=== PATIENT | male | born 1930 | race Caucasian/White ===

== ENCOUNTER 2016-08-08 07:37 | Emergency (ER) | payer MEDICARE ==
[~2016-08-08] VITALS: Ht 182.9 cm; Wt 81.8 kg
[~2016-08-08 07:37] MED LIST: ASP81TEC PO; ATENOLOL (*) 2525 MG PO; OMEP20TA86 PO
--- NOTE | 2016-08-08 07:42 | ED.REPORT ---
HPI-General Illness Date of Service Aug 08, 2016 ED Provider: Enoch Jackson MD 85-year-old male presents today with altered level of consciousness. states that he was found unconscious this morning and EMS was called at that time. Upon arrival of the EMS he was awake but remained somewhat confused and was taken to the hospital that time. Today in the hospital he is alert and oriented 3 and is not showing any signs of altered mental status at this time. However he complains of increased weakness and nausea. The family states that he has been progressively weaker over the last 1-2 months and his mental status is been varied over that time. Family states that he had a fall earlier today, and since that time the patient has been complaining of increased neck pain. He has a primary care provider and the family has been trying to get him into see a neurologist for plantar fasciitis as well as the neurologic changes noted over the last few months. Nursing Notes Stated Complaint: ALTERED LOC Allergies: Coded Allergies: No Known Allergies (Verified , 11/08/07) Scheduled Aspirin (Aspirin) 325 Mg Tablet 325 MG PO DAILY Atenolol (Atenolol) 25 Mg Tablet 25 MG PO DAILY Atenolol-Expunged Drug, Do Not Renew! (Atenolol-Expunged Drug, Do Not Renew!) 25 Mg Tab 25 MG PO DAILY Omeprazole-Expunged Drug, Do Not Renew! (Omeprazole-Expunged Drug, Do Not Renew! ) 20 Mg Tablet.dr 20 MG PO ac prn Miscellaneous Medications Aspirin-Expunged Drug, Do Not Renew! (Aspirin EC-Expunged Drug, Do Not Renew!) 81 Mg Tablet 81 MG PO General Time Seen by MD: 07:41 Chief Complaint Weakness Hx Obtained From: Patient Arrived By: Ambulance Sudden in Onset?: Yes Onset Occurred: Just prior to arrival Symptom Duration: Intermittent Location: : Neck Quality: Aching Radiation: : Does not radiate Past Medical History Past Medical History Notes: Arthritis - Hip Past Medical History Reports: Hypertension Smoking History Never Smoker Social History Alcohol Use: Denies alcohol use Drug Use: Denies drug use Review of Systems Complete sys rev & neg: except as marked. Physical Exam Vital Signs Vital Signs Date Time Temp Pulse Resp B/P Pulse Ox O2 Delivery O2 Flow Rate FiO2 08/08/16 11:56 36.7 95 21 113/61 94 Room Air 08/08/16 09:18 104 18 125/72 98 Room Air 08/08/16 07:58 36.7 95 25 129/79 99 Room Air General/Constitutional: Well-developed, Well-nourished Head / Eyes: Atraumatic, Normocephalic, PERRL ENT: Mucous membranes moist, Conjunctiva normal, No scleral icterus Neck: Supple, Non-tender, Full range of motion Respiratory: Breath sounds normal, Clear to auscultation, No respiratory distress Abdomen / GI: Soft, Non-tender, No guarding, No rebound, No distention Extremities: Vascular intact, Neuro intact, No swelling, No tenderness Skin: Warm, Dry, No cyanosis Neurologic: Alert, Oriented, Nonfocal Psychiatric: Mood/affect normal, Behavior normal, Normal thought content Heart Rate / Rhythm: Positive: Irreg irregular rhythm, Tachycardia Interpretation & Diagnostics Lab Results Interpretation Result Diagram: 08/08/16 0830 08/08/16 0830 Test 08/08/16 08:13 08/08/16 08:30 Urine Color Straw (YELLOW) Urine Appearance Clear (CLEAR,HAZY) Urine pH 5.0 (5.0-8.0) Urine Specific Bradford 1.025 (1.003-1.035) Urine Protein 30mg/dL (NEG,TRACE) Urine Glucose (UA) Negativemg/dL (NEGATIVE) Urine Ketones Negativemg/dL (NEGATIVE) Urine Occult Blood Small (NEGATIVE) Urine Nitrite Negative (NEGATIVE) Urine Bilirubin Negative (NEGATIVE) Urine Urobilinogen Normalmg/dL (NORMAL) Urine Leukocyte Esterase Negative (NEGATIVE) Urine RBC 3-10/hpf (0-2) Urine WBC 0-5/hpf (0-5) Urine Epithelial Cells Few/hpf (NONE-MOD) Urine Crystals None seen (NONE SEEN) Urine Bacteria Few/hpf (NONE-FEW) Urine Hyaline Casts None/lpf (NONE) Urine Granular Casts None seen (NONE SEEN) Urine Waxy Casts None seen (NONE SEEN) Urine Red Blood Cell Casts None seen (NONE SEEN) Urine White Blood Cell Casts None seen (NONE SEEN) Urine Mucus Present (None Seen) Urine Trichomonas None seen (NONE SEEN) Urine Yeast None (NONE SEEN) Urinalysis Comment None Urine Culture Reflexed Not indicated White Blood Count 9.2th/mm3 (3.8-10.1) Red Blood Count 4.30mil/mm3 (4.40-5.80) Hemoglobin 14.2g/dL (13.8-17.2) Hematocrit 42.1% (41.0-50.0) Mean Corpuscular Volume 97.9fL (81-100) Mean Corpuscular Hemoglobin 33.0pg (27.0-35.0) Mean Corpuscular Hemoglobin Concent 33.7% (32.0-37.0) Red Cell Distribution Width 13.7% (12.3-15.4) Platelet Count 147bil/L (150-400) Neutrophils (%) (Auto) 87.3% (40-74) Lymphocytes (%) (Auto) 5.1% (14-46) Monocytes (%) (Auto) 5.4% (4-12) Eosinophils (%) (Auto) 1.5% (0-5) Basophils (%) (Auto) 0.3% (0-3) Hold Urine Received (Received) Sodium Level 139mEq/L (134-144) Potassium Level 4.0mEq/L (3.5-5.2) Chloride Level 105mEq/L (97-108) Carbon Dioxide Level 19mmol/L (18-29) Blood Urea Nitrogen 23mg/dL (8-27) Creatinine 0.91mg/dL (0.76-1.27) Estimat Glomerular Filtration Rate 84mL/min (>59) Glucose Level 130mg/dL (60-99) Calcium Level 10.1mg/dL (8.5-10.1) Magnesium Level 1.9mg/dL (1.6-2.6) Total Bilirubin 0.4mg/dL (0.0-1.2) Aspartate Amino Transf (AST/SGOT) 20U/L (0-50) Alanine Aminotransferase (ALT/SGPT) 13U/L (0-44) Alkaline Phosphatase 74U/L (25-160) Troponin T 0.010ug/L (0.0-0.011) Total Protein 6.4g/dL (6.4-8.4) Albumin 3.9g/dL (3.4-5.0) Hold Murphy Top Tube Received (Received) ECG Interpretation Time: 09:00 Interpreted by: ED physician Normal ECG Interpretation: Normal rate Abnormal Rate: 100 Rhythm / Conduction: Atrial fibrillation Re-Eval/Medical Decision Med Decision/Clinical Course EKG shows atrial fibrillation. This is most likely new onset. The patient is not had an EKG in the last year, and family states that he has not been diagnosed with this condition previously. CT brain showed "Mild periventricular and deep white matter chronic small vessel ischemic change. 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 fib at this time. The patient states it is currently taking 650 mg of tylenol nightly for arthritis and hip pain. Warfarin is considering this patient because he has new onset A. fib, however due to his history of recent falls along with the fact that he is currently taking a dose of aspirin there is some question as to whether or not this should be initiated this time. Counseled Regarding: Diagnosis, Lab results, Need for follow-up, When/why to return to ED Discharge & Departure Primary Impression: A-fib Atrial fibrillation type: unspecified Qualified Code: I48.91 - Unspecified atrial fibrillation Additional Impressions: Fall from ground level Altered mental status Altered mental status type: unspecified Qualified Code: R41.82 - Altered mental status, unspecified Disposition: Home Discharge Condition All VS Reviewed: Yes Condition: Stable Additional Instructions: You presented to the hospital today for weakness and dizziness that has been constant over the last 1-2 months. Her EKG today showed atrial fibrillation. This may be new onset or may have existed for the last few months. This is likely the cause of your symptoms. We discussed with you extensively the pros and cons of taking a blood thinner for this condition. After initiation of blood thinning therapy there is concern for falls as this may cause bleeding either externally or internally. However, if we do not place you on blood thinner there is a possibility of stroke sometime in the future. After discussing this with family reconsidered warfarin therapy however, the patient's family attempted to start his therapy based on many side effects they have heard of from this medication. We discussed the possibility of other blood thinning medications as an alternative , however at this time the patient does not have an insurance plan that would cover outpatient medications and the alternatives to warfarin can be expensive to pay for as an outpatient. For these reasons, combined with the fact that the patient's risk for stroke within the next year is relatively low it was decided that blood thinning medication not be initiated at this time. Instead, the patient had been taking a baby aspirin (81 mg), at this time we will increase the dose to 325 mg daily cover for possibility of stroke Additionally, a common problem to occur in atrial fibrillation is a rapid heart rate. For this reason, we suggest you begin taking atenolol 25 mg daily as previously prescribed. We were unable to determine if you are currently taking triamterene-HCTZ, however if you are taking this medication continue as previously prescribed for fluid retention. We attempted to contact her primary care provider however our efforts were unsuccessful and we were unable to communicate. Please follow-up with your primary care provider as soon as possible. The primary care provider should be able to manage this condition on an outpatient basis, however, if he is concerned about the management he may refer you to cardiology at that time. If you develop shortness of breath, chest pain, facial droop, altered state of consciousness, weakness in arms or legs, visual changes, auditory changes, or an inability to speak please return to the emergency department as soon as possible. Referrals: Anirudh Maier MD (PCP) EDSupervising Provider for APC: Enoch Jackson MD Attending Statement Attending attestation: I saw this patient in conjunction with the above named resident. I was present for all estes portions of the history taking and physical examination. I agree with the workup, evaluation, treatment and disposition. Pt presents after an episode of altered mental status following a ground-level fall. Imaging of the head and cervical spine is reassuring. Patient's cervical spine was clinically cleared and collar was removed. No evidence of acute infectious process. No lateralizing neurologic findings. Here in the emergency department patient is alert/awake and answering questions appropriately. He does not desire admission to the hospital. He is found to be in atrial fibrillation which is apparently new. We had a long conversation with the patient as well as his family regarding anticoagulation. Given that he has had ground-level falls the decision was then made not to initiate Coumadin. He will start daily adult aspirin. He has been on atenolol in the past though has not been taking it recently. We have restarted atenolol for rate control. We attempted to contact the patient's primary care physician however we were not successful. The event advised to follow-up in the next 1-2 days with his primary care doctor for further discussions about risks and benefits of anticoagulation. Per family the patient is felt to be safe at home and they will assist in ambulation and make sure that he does not fall again. Prior to discharge follow- up and return precautions were reviewed in detail with the patient who verbalized understanding and agreement with the plan. The patient was discharged in stable condition. Enoch King MD, MD Aug 08, 2016 07:42 Jean-Paul Courtney DO Aug 08, 2016 08:40
[2016-08-08 07:58] VITALS: BP 129/79; PULSE 95; RESP 25; O2SAT 99
[2016-08-08] MEDS ORDERED: 0.9% Sodium Chloride 500 ML IV ONE (08:10)
--- NOTE | 2016-08-08 08:30 | DRSVH ---
PROCEDURE: X-RAY CHEST ONE VIEW, PORTABLE ([id number]) INDICATIONS: weakness, altered loc TECHNIQUE: One view of the chest was acquired. COMPARISON: [facility], CR, CHEST 2VW, 11/08/2007, 12:07. [facility], CR, C HEST 1VW (PORTABLE), 09/08/2011, 16:52. FINDINGS: Surgical changes and devices: None. Lungs and pleura: Bibasilar opacities may be scars, atelectasis or pneumonia. No pleural effusions o r pneumothorax. Mediastinum: Mediastinal contours appear normal. Heart size is normal. Bones and chest wall: No suspicious bony lesions. Overlying soft tissues appear unremarkable. Moder ate to severe shoulder joint degeneration bilaterally. IMPRESSION: Bibasilar opacities may be scars, atelectasis or pneumonia. Recommend clinical correlatio n. Dictated by: Porfirio Regalado M.D. on 08/08/2016 at 8:27 Approved by: Porfirio Regalado M.D. on 08/08/2016 at 8:28
[2016-08-08 08:32] LABS: APPEARANCE,URINE CLEAR (CLEAR,HAZY); COLOR,URINE STRAW (YELLOW); OCCULT BLOOD,URINE SMALL (NEGATIVE); UROBILINOGEN,URINE NORMAL (NORMAL)
[2016-08-08 08:46] LABS: BASOPHILS % (AUTO) 0.3 % (0-3); EOSINOPHILS % (AUTO) 1.5 % (0-5); MONOCYTES % (AUTO) 5.4 % (4-12); Mean Corpuscular Volume 97.9 fL (81-100); NEUTROPHILS % (AUTO) 87.3 % (40-74); Platelet Count 147 bil/L (150-400)
[2016-08-08] MEDS ORDERED: Ondansetron 2 mg/mL 2 mL Inj IVPUSH PRN (08:55)
--- NOTE | 2016-08-08 09:00 | DRSVH ---
PROCEDURE: CT CERVICAL SPINE WITHOUT CONTRAST ([id number]) INDICATIONS: fall TECHNIQUE: Noncontrast 3 mm thick sections acquired from the skull base to the T4 level. Sagittal and coronal r eformats were then constructed. For radiation dose reduction, the following was used: automated exp osure control, adjustment of mA and/or kV according to patient size. COMPARISON: None. FINDINGS: Image quality: Excellent. Bones: No fractures or dislocations. There mild retrolisthesis at C3-C4 and minimal anterolisthesis at C5-C6 and C6-C7. There is multilevel mild to space narrowing in the cervical spine as well as di sc space calcifications. Partial fusion is noted at C2-C3 and to a lesser extent at C3-C4. There is also mild multilevel uncovertebral joint arthropathy and facet arthropathy. Visualized superior rib s are intact. Soft tissues: Prevertebral soft tissues are normal in thickness. No paravertebral hematomas. No ap ical pneumothoraces. There are bilateral hypertension thyroid nodules with the largest in the right lobe measuring up to approximately 3.5 cm. Several of the nodules demonstrate small foci of internal calcifications. There are curvilinear calcifications in the posterior paraspinous soft tissues cent ered at the level of C5-C6 likely represent dystrophic calcifications possibly from prior ligamentous sprains. IMPRESSION: 1. No acute fracture. 2. Mild spondylolisthesis in the mid cervical spine likely degenerative in etiology. 3. Curvilinear soft tissue calcification in the posterior paraspinous soft tissues likely represent dystrophic calcification. 4. Bilateral heterogeneous thyroid nodules, with a mass in the right lobe measuring up to 3.5 cm. R ecommend further evaluation with thyroid ultrasound if clinically indicated. Dictated by: Rafael Arce M.D. on 08/08/2016 at 8:52 Approved by: Rafael Arce M.D. on 08/08/2016 at 8:58
--- NOTE | 2016-08-08 09:02 | DRSVH ---
PROCEDURE: CT BRAIN WITHOUT CONTRAST ([id number]) INDICATIONS: 85 year-old male with recent fall. TECHNIQUE: Noncontrast 4.5 mm thick angled axial sections acquired from the foramen magnum to the vertex, with c oronal reformats. COMPARISON: None. FINDINGS: Image quality: Excellent. CSF spaces: Basal cisterns are patent. No extra-axial fluid collections. The ventricles are symmet shekhar in size and shape. Brain: No intracranial bleeds or masses. There are mild periventricular and deep white matter chron ic small vessel ischemic changes. 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 There is intracranial internal carotid artery atherosclerosis. Skull and face: Calvarium and visualized facial bones appear intact, without suspicious lesions. Sinuses: Visualized sinuses and mastoids are clear. IMPRESSION: 1. No acute intracranial abnormalities after fall. 2. Mild periventricular and deep white matter chronic small vessel ischemic change. Small nonacute in farct in the left cruz radiata. Dictated by: Bobby Foote M.D. on 08/08/2016 at 8:58 Approved by: Bobby Foote M.D. on 08/08/2016 at 9:00
[2016-08-08 09:05] LABS: Magnesium 1.9 mg/dL (1.6-2.6)
[2016-08-08 09:18] VITALS: BP 125/72; PULSE 104; RESP 18; O2SAT 98
[2016-08-08] MEDS ORDERED: ATEN25TA PO (11:36)
[2016-08-08] MEDS ORDERED: ASPI325T32 PO (11:36)
[2016-08-08 11:56] VITALS: BP 113/61; PULSE 95; RESP 21; O2SAT 94
== END 2016-08-08 11:57 | disposition home or self-care (01) ==
LOC: SED 07:37 → EDBD 07:37 → EDUNIT# 07:37 → SED 11:57
DX: I11.9 Hypertensive heart disease without heart failure (principal); I48.91 Unspecified atrial fibrillation; R53.1 Weakness; W18.39XA Other fall on same level, initial encounter; Y93.89 Activity, other specified; Y92.89 Other specified places as the place of occurrence of the external cause; Y99.8 Other external cause status; R41.82 Altered mental status, unspecified; M54.2 Cervicalgia; R11.0 Nausea; Z79.82 Long term (current) use of aspirin
CPT/HCPCS: 36415; 70450; 71010; 72125; 80053; 81000; 83735; 84484; 85025; 93005; 96374; 99285; J2405; J7040